=== PATIENT | male | born 1990 | race Two or more races ===

== ENCOUNTER 2018-12-13 10:55 | Emergency (ER) | payer OTHER ==
[2018-12-13] MEDS: IBUPROFEN 800 MG TAB PO (11:24)
== END 2018-12-13 11:56 | disposition home or self-care (01) ==
LOC: E/R 10:55
DX: R07.9 Chest pain, unspecified (principal); F17.210 Nicotine dependence, cigarettes, uncomplicated
CPT/HCPCS: 71045; 93005; 99284-25